=== PATIENT | female | born 1940 | race Caucasian/White ===

== ENCOUNTER 2024-11-12 06:18 | Day surgery (SDC) | payer OTHER, SELFPAY ==
[2024-11-12] VITALS (9 sets, daily range): BP systolic 131–149; BP diastolic 60–79; BMI 27.5
[2024-11-12] MEDS: Pyridium 200 MG PO (14:05)
[2024-11-12] MEDS: NORMOSOL-R/PLASMALYTE-A 1000 IV (14:06)
[2024-11-12] MEDS: HEPARIN 5000 UNITS SC (15:35)
[2024-11-12] MEDS: LR 1000 IV (20:08)
[2024-11-12] MEDS: TORADOL 15 MG IV (20:11)
--- NOTE | 2024-11-12 21:00 | PTCARENOTE ---
Pt admitted to 2126 from PACU. AAOX3, denies pain, VSS. Hardin cath draining yellow/orange urine. Call hale within reach.
[2024-11-12] MEDS: COLACE 100 MG PO (22:37)
[2024-11-13 00:01] VITALS: BP 131/60
[2024-11-13] MEDS: TORADOL 15 MG IV ×2 (01:36→08:31)
[2024-11-13 03:30] VITALS: BP 119/51
--- NOTE | 2024-11-13 05:17 | PTCARENOTE ---
Hardin catheter with vaginal packing removed per order. Pt ambulated into bathroom, passed gas no BM. Pt had small amount of bright red vaginal bleeding.
[2024-11-13] MEDS: SYNTHROID 112 MCG PO (05:33)
[2024-11-13] MEDS: LR 1000 IV (06:32)
[2024-11-13 07:05] VITALS: BP 128/59
[2024-11-13 08:02] LABS: Hematocrit 39.9 % (37.0-47.0); Hemoglobin 13.6 g/dL (12.0-16.0); Mean Corp Hgb Conc. 34.1 g/dL (33.0-37.0); Mean Corpuscular Hgb 29.4 pg (27.0-31.0); Mean Corpuscular Volume 86.4 fL (81.0-99.0); Mean Platelet Volume 11.3 fL (7.4-10.4); Platelet Count 209 10^3/uL (130-400); Red Blood Cell Count 4.62 10^6/uL (4.20-5.40); Red Cell Dist. Width 13.6 % (11.5-14.5); White Blood Cell Count 9.4 10^3/uL (4.8-10.8)
--- NOTE | 2024-11-13 08:05 | W.PN.GYN ---
Today's Communication / Plan
-
voiding trial
Physician Note
-
Patient is a 84yoF PMH POP currently POD1 s/p Hysteropexy with sacrospinous ligament fixation, Anterior and posterior colporrhaphy with perineoplasty, Cystoscopy on 11/12/24.
S: Patient was evaluated on AM rounds. She reports feeling well other than feeling a bit bloated and gassy. Last BM was two days ago. She's been tolerating drinking water and ambulating without difficulty. Pending to void. Incisional pain is
controlled with tylenol. Noted some vaginal spotting and went through one pad since yesterday. Denies chest pain, sob, nausea/vomiting.
O:
GA: Well appearing elderly female seated in chair
HEENT: normocephalic, EOMI
Abd: soft, nondistended, nontender
: bright red blood in pad (minimal saturation in pad)
Ext: negative LE edema b/l
Vital Signs
Temp Pulse Resp BP Pulse Ox
97.6 F 65 18 119/51 97
11/13/24 03:30 11/13/24 03:30 11/13/24 03:30 11/13/24 03:30 11/13/24 03:30
Intake and Output
11/12/24 11/13/24 11/14/24
06:59 06:59 06:59
Intake Total 1500 / 1500
Output Total 775 / 775
Balance 725 / 725
Intake:
Oral fluids 300 / 300
IV fluids (Total) 1200 / 1200
Normosal 200 / 200
Output:
Urine, Hardin 775 / 775
Laboratory Results
11/13/24 07:24
11/13/24 07:24
A/P
84yoF PMH POP currently POD1 s/p Hysteropexy with sacrospinous ligament fixation, Anterior and posterior colporrhaphy with perineoplasty, Cystoscopy on 11/12/24. Patient is stable.
- Followup BMP
- Monitor Vitals
- Followup trial of void
- Monitor Is and Os
- Ambulate with assistance
- Colace for constiption
- Continue home medications
- Tylenol/Ibuprofen as needed for mild/moderate pain; oxycodone for severe pain
- May stop IV fluids if hydrating orally
- Regular diet
- DVT prophylaxis with SCDs
- Discharge home midday
[2024-11-13] MEDS: COLACE 100 MG PO (08:31)
[2024-11-13 08:33] LABS: Carbon Dioxide 25 mmol/L (22-30); Chloride 101 mmol/L (98-107); Estimated Creatinine Clearance 65 ml/min; Potassium 4.9 mmol/L (3.5-5.1); Sodium 136 mmol/L (135-145)
--- NOTE | 2024-11-13 12:02 | CM ---
CM reviewed medical records. CM spoke with patient's daughter who is currently on her way to corn picker patient. CM updated that patient is awaiting void trial and then plan for discharge to home.
PLAN: home no needs.
[2024-11-13 14:58] VITALS: BP 120/65
== END 2024-11-13 15:38 | disposition home or self-care (01) ==
LOC: SDS 06:18
PROVIDERS: ATTENDING PHYSICIAN Obstetrics & Gynecology
DX: N81.2 Incomplete uterovaginal prolapse (principal); R33.8 Other retention of urine
CPT/HCPCS: 57282; 57260; 80051; 82565; 85027; 86850; 86900; 86901